=== PATIENT | female | born 1975 | race Caucasian/White ===

== ENCOUNTER → 2017-01-06 | Outpatient (CLI) | payer OTHER ==
--- NOTE | 2017-01-06 16:19 | DI ---
MRI THORACIC SPINE SCAN, 01/06/2017 2:54 PM: Clinical History: Thoracic back pain at multiple levels. Previous Exam: None. Technique: Sagittal T1 and T2 weighted and STIR scans are supplemented with an axial angulated T1 and T2 weighted scans between C7 and the upper half of T8. This corresponds to the location of the patie nt's pain. The vertebral bodies are of normal height and size. The disc spaces are of normal height and signal p attern. The thoracic cord and the conus medullaris are normal. There are no extradural lesions. There are no intradural extramedullary or intramedullary lesions. Reading: Normal noncontrast MRI scan of the thoracic spine. No extradural lesion or intradural extramedullary or intramedullary lesion is identified.
== END ==
LOC: MRI 14:49
PROVIDERS: ATTEND Family Medicine
DX: M54.6 Pain in thoracic spine (principal)
CPT/HCPCS: 72146

== ENCOUNTER → 2017-02-28 | Outpatient (CLI) | payer OTHER ==
--- NOTE | 2017-03-01 19:22 | DI ---
WHOLE BODY BONE SCAN WITH CT SPECT BONE SCAN OF THE ENTIRE SPINE, 02/28/2017 2:00 PM : Clinical History: Thoracic spine pain at multiple areas. Previous Exam: None at this facility. 3 hours after IV injection of 31 mCi of [id number], SPECT images of the entire spine were obtained. Axi al, sagittal, and coronal projections were generated. Upon completion of the SPECT scan, a low dose C T scan of the same areas was performed without IV contrast. Axial, sagittal, and coronal CT projectio ns were generated. Fused images of the CT and SPECT scans are also produced in all three planes. Whol e body AP and PA images were obtained. CT [id number] SPINE: Scans through the cervical, thoracic, and lumbar spine show the vertebral bodies and disc spaces to be normal in appearance with the exception of the body of T7 which demonstrates a bone island. All of the apophyseal joints in the thoracic and lumbar region are normal. No significant abnormalities of the zygapophyseal joints in the cervical spine are noted. Bullous lesions are present in the left lung. Scans of the abdomen and pelvis show a normal appearanc e of the liver, spleen, adrenal glands, kidneys, and the pancreas. No adenopathy or free fluid is not ed. There is a low-density ovoid structure in the right side of the pelvis that is consistent with an ovarian cyst. FUSED CT AND SPECT BONE SCANS OF THE ENTIRE SPINE: The fused CT and SPECT scans show that the area of the greatest increased activity in the entire spin e is localized to the anterior arch of C1 and the dens of C2. In the cervical spine, symmetric modera te increased activity is present bilaterally between C3-4 through C7-T1 in the zygapophyseal joints. In the thoracic spine, no significant increased activity is seen in the apophyseal joints. There is a focus of increased activity in the body of T7 along the left anterolateral margin in the CT scan is consistent with a bone island. In the lumbar spine, there is modest increased activity from L1-2 thro ugh L5-S1 on the right side and from L2-3 through L5-S1 on the left side. Readin. CT scans through the thoracic spine are unremarkable. There is an incidental note of a bone islan d in the body of T7. The fused CT SPECT scans show no significant increased activity in the apophysea l joints or posterior elements. 2. CT scans of the cervical spine are unremarkable. The focus of greatest increased activity through out the entire spine is at the level of the anterior arch of C1 and the dens of C2. There is modest i ncreased activity in the zygapophyseal joints bilaterally from C3-4 through C7-T1 consistent with mil d arthritic change. 3. The CT scans through the lumbar region are unremarkable. There is modest increased activity in th e apophyseal joints bilaterally between L2-3 through L5-S1 and on the right side at L1-2. This amount of activity would be consistent with mild arthritic change. 4. There are bullae in the left lung and there is a low-density ovoid structure in the right side of the pelvis that probably represents an ovarian cyst.
== END ==
LOC: NM 13:53
PROVIDERS: ATTEND Neurological Surgery
DX: M54.6 Pain in thoracic spine (principal); M47.812 Spondylosis without myelopathy or radiculopathy, cervical region; M47.816 Spondylosis without myelopathy or radiculopathy, lumbar region
CPT/HCPCS: 72125; 72128; 72131; A9503

== ENCOUNTER → 2017-04-06 | Outpatient (CLI) | payer OTHER | LOC: LAB 15:39 | PROVIDERS: ATTEND Family Medicine | DX: R59.9 Enlarged lymph nodes, unspecified (principal); R93.7 Abnormal findings on diagnostic imaging of other parts of musculoskeletal system; Z87.09 Personal history of other diseases of the respiratory system | CPT/HCPCS: 36415; 85652; 86038 ==